=== PATIENT | female | born 1995 | race Caucasian/White ===

== ENCOUNTER → 2021-09-04 | Day surgery (SDC) | payer OTHER ==
[~2021-09-04] VITALS: Ht 177.8 cm; Wt 78.9 kg
[~2021-09-04] MED LIST: MACROBID100 MG PO; REGLAN10 MG PO
[2021-09-04 13:27] LABS: HCG (URINE) SCREEN NEGATIVE (NEGATIVE)
== END | disposition home or self-care (01) ==
LOC: FAS 12:00
PROVIDERS: Anesthesiology
DX: D12.8 Benign neoplasm of rectum (principal); K64.8 Other hemorrhoids; K64.4 Residual hemorrhoidal skin tags; K59.09 Other constipation; Z20.822 Contact with and (suspected) exposure to COVID-19; Z80.0 Family history of malignant neoplasm of digestive organs; Z91.013 Allergy to seafood; Z91.040 Latex allergy status; Z72.89 Other problems related to lifestyle
CPT/HCPCS: 84703; J2704; U0002